=== PATIENT | male | born 1985 | race Caucasian/White ===

== ENCOUNTER 2017-05-06 08:44 | Emergency (ER) | payer OTHER | END 2017-05-06 10:02 | disposition home or self-care (01) | LOC: ER1 08:44 | DX: S46.911A Strain of unspecified muscle, fascia and tendon at shoulder and upper arm level, right arm, initial encounter (principal); M75.91 Shoulder lesion, unspecified, right shoulder; X50.9XXA Other and unspecified overexertion or strenuous movements or postures, initial encounter; Y92.89 Other specified places as the place of occurrence of the external cause; Y99.0 Civilian activity done for income or pay | CPT/HCPCS: 73030; 96372; 99283; J1885 ==

== ENCOUNTER 2021-04-13 09:13 | Emergency (ER) | payer BC ==
[~2021-04-13 09:13] MED LIST: ASPIRIN CHEWABL81 MG PO; IBUPROFEN600 MG PO; NORFLEX 100 MG100 MG PO; PREDNISONE 50 M50 MG PO
[2021-04-13 10:02] LABS: HEMOGLOBIN 14.6 gm/dl (14.0-17.5); RED BLOOD COUNT 4.79 M/UL (4.20-5.50); WHITE BLOOD COUNT 8.2 K/UL (4.5-11.0)
[2021-04-13 10:35] LABS: BUN/CREATININE RATIO 23 (0-10)
== END 2021-04-13 12:25 | disposition home or self-care (01) ==
LOC: ER1 09:13
PROVIDERS: Physician Assistant
DX: R10.10 Upper abdominal pain, unspecified (principal); R11.0 Nausea
CPT/HCPCS: 80053; 81001; 82150; 83690; 85025; 99284; Q9967

== ENCOUNTER 2021-08-11 20:02 | Emergency (ER) | payer SELFPAY ==
[2021-08-11 20:39] LABS: HEMOGLOBIN 15.1 gm/dl (14.0-17.5); RED BLOOD COUNT 4.98 M/UL (4.20-5.50); WHITE BLOOD COUNT 8.6 K/UL (4.5-11.0)
[2021-08-11 21:05] LABS: BUN/CREATININE RATIO 17 (0-10)
[2021-08-11] MEDS ORDERED: OMEPRAZOLE20 MG PO (23:05)
== END 2021-08-12 00:55 | disposition home or self-care (01) ==
LOC: ER1 20:02
PROVIDERS: Nurse Practitioner
DX: R10.10 Upper abdominal pain, unspecified (principal); R11.2 Nausea with vomiting, unspecified; F17.220 Nicotine dependence, chewing tobacco, uncomplicated
CPT/HCPCS: 80053; 81001; 83690; 85025; 96374; 96375; 99284; C9113; J1885; Q9967